=== PATIENT | male | born 1990 | race Caucasian/White ===

== ENCOUNTER 2024-05-20 09:41 | Emergency (ER) | payer SELFPAY ==
[2024-05-20 10:12] LABS: Absolute Eosinophils 0.1 K/uL (0-0.5); Absolute Lymphocytes (CBC) 1.8 K/uL (0.7-4.9); Absolute Monocytes 0.4 K/uL (0.1-1.3); Basophils % 0.6 % (0-1.3); Eosinophils % 1.3 % (0-4.4); Hematocrit 45.4 % (39.6-49.0); Hemoglobin 15.1 g/dL (13.6-17.9); Lymphocytes % 41.4 % (15.3-44.8); MCH 30.7 pg (27.0-35.0); MCHC 33.3 g/dL (32.0-36.0); MCV 92.2 fL (80-100); MPV 8.3 fL (7.6-11.3); Monocytes % 9.1 % (3.3-12.3); Neutrophils % 47.6 % (41.7-73.7); Platelets 151 thou/uL (152-406); RBC Red Blood Cell Count 4.92 M/uL (4.33-5.43); Red Cell Distribution Width 13.7 % (12.1-15.2)
[2024-05-20] MEDS ORDERED: NA CHLORIDE 0.9% 1,000 ML ONE (10:15)
--- NOTE | 2024-05-20 10:21 | RAD REPORT ---
EXAM: CT CHEST, ABDOMEN AND PELVIS WITHOUT CONTRAST CLINICAL INDICATION: Male, 34 years [facility] chest/abd pain Bed Name: 5 TECHNIQUE: CT chest, abdomen and pelvis was performed, with IV contrast, as per department protocol. Axial, sagittal and coronal reconstructions were obtained. One or more of the following dose reduction techniques were used: Automated exposure control, adjustment of the mA and/or kV according to the patient size, and/or iterative reconstruction. Unless otherwise specified, incidental findings do not require dedicated imaging follow-up. [id number]. COMPARISON: No prior exam. FINDINGS: Chest: LOWER NECK/CHEST WALL: Visualized thyroid gland and soft tissues are normal. LUNGS AND AIRWAYS: Airways are clear. No evidence of airspace or interstitial process. No nodules. PLEURA: No pleural effusion. No pneumothorax. Hemidiaphragms are normally positioned. MEDIASTINUM AND LYMPH NODES: No mediastinal mass or fluid collection. Normal size mediastinal, hilar, and axillary lymph nodes. THORACIC AORTA: Normal caliber and configuration. PULMONARY ARTERIES: Normal caliber. HEART: Unremarkable. Abdomen/Pelvis LIVER: 12 mm low-density lesion in the posterior right hepatic lobe which is likely benign. Hepatic s teatosis GALLBLADDER/BILE DUCTS: Cholecystectomy PANCREAS: No mass, ductal dilation, or argelia-pancreatic fluid. SPLEEN: Normal size. No focal lesion. ADRENALS: Normal; no mass. KIDNEYS AND URETERS: Normal size and contour. No hydronephrosis. GASTROINTESTINAL TRACT: Stomach is non-dilated. Small bowel has normal course and caliber. No colonic wall thickening or pericolonic inflammatory changes. Normal appendix. PERITONEUM: No free fluid. LYMPH NODES: No lymphadenopathy. ABDOMINAL AORTA AND OTHER VESSELS: Normal caliber aorta and IVC. URINARY BLADDER: Normal contour. REPRODUCTIVE ORGANS: No pathologic process. MUSCULOSKELETAL: No acute or suspicious osseous abnormality. ADDITIONAL FINDINGS: None IMPRESSION: No acute or significant abnormalities in the chest, abdomen, or pelvis.
[2024-05-20 10:34] LABS: Albumin 3.7 g/dL (3.4-5.0); Albumin/Globulin Ratio 1.1 (1.1-1.8); Bilirubin Total 0.6 mg/dL (0.2-1.0); Globulin 3.3 g/dL (2.3-3.5)
[2024-05-20 11:44] LABS: Specific Gravity 1.028 (1.005-1.030); Sqamous Epithelial None Seen /HPF (None Seen); Urine Bacteria None Seen /HPF (<20); Urine Bilirubin NEGATIVE (Negative); Urine Blood Negative (Negative); Urine Clarity Clear (Clear); Urine Color Colorless (Yellow); Urine Culture Reflex Order NOT NEEDED; Urine Glucose NEGATIVE (Negative); Urine Ketones NEGATIVE (Negative); Urine Microscopic Reflex YN ORDER UMIC; Urine Nitrite NEGATIVE (Negative); Urine Protein NEGATIVE (Negative); Urine RBC <5 /HPF (None Seen); Urine Urobilinogen Normal (Normal); Urine WBC <5 /HPF (<5)
--- NOTE | 2024-05-20 11:47 | EDPHYS ---
Physician Documentation [facility] Name: Estevan Lopez Age: 34 yrs Sex: Male : 1990 Arrival Date: 05/20/2024 Time: 09:41 Bed 5 Private MD: ED Physician Cristiano Montes De Oca HPI: 05/20 09:55 This 34 yrs old Male presents to ER via Ambulatory with complaints of Abdominal Pain. sp3 09:55 34-year-old male with history of low T, s/p cholecystectomy now presents to the ED with sp3 chief complaint 2 weeks of chest, abdomen and pelvic pain. Patient states that it is worse at night and it starts in the chest and moves inferiorly into his abdomen and left lower quadrant. Patient had a colonoscopy 2 years ago which demonstrated polyps and diverticulitis. Patient has had no symptoms or issues with it since then. He denies vomiting, diarrhea, bleeding, back pain, dysuria, urinary frequency, fever, known sick contacts, travel history, trauma or any other signs or symptoms on ROS at this time.. Historical: - Allergies: 09:50 No Known Allergies; ll1 - PMHx: 09:50 low T; ll1 - PSHx: 09:50 None; ll1 - Immunization history:: Adult Immunizations up to date. - Infectious Disease History:: Denies. - Social history:: Smoking status: Patient reports the use of cigarette tobacco products, smokes one-half pack cigarettes per day. ROS: 09:55 Constitutional: Negative for fever, chills, and weight loss, Eyes: Negative for injury, sp3 pain, redness, and discharge, Neck: Negative for injury, pain, and swelling, Respiratory: Negative for shortness of breath, cough, wheezing, and pleuritic chest pain, Back: Negative for injury and pain, : Negative for injury, bleeding, discharge, and swelling, MS/Extremity: Negative for injury and deformity, Skin: Negative for injury, rash, and discoloration, Neuro: Negative for headache, weakness, numbness, tingling, and seizure, Psych: Negative for depression, anxiety, suicide ideation, homicidal ideation, and hallucinations, Allergy/Immunology: Negative for hives, rash, and allergies, Endocrine: Negative for neck swelling, polydipsia, polyuria, polyphagia, and marked weight changes, Hematologic/Lymphatic: Negative for swollen nodes, abnormal bleeding, and unusual bruising, 09:56 All other systems are negative, sp3 Exam: 09:59 Constitutional: This is a well developed, well nourished patient who is awake, alert, sp3 and in no acute distress. Head/Face: Normocephalic, atraumatic. Eyes: Pupils equal round and reactive to light, extra-ocular motions intact. Lids and lashes normal. Conjunctiva and sclera are non-icteric and not injected. Cornea within normal limits. Periorbital areas with no swelling, redness, or edema. ENT: Nares patent. No nasal discharge, no septal abnormalities noted. External auditory canals are clear. Oropharynx with no redness, swelling, or masses, exudates, or evidence of obstruction, uvula midline. Mucous membranes moist. Neck: Trachea midline, no thyromegaly or masses palpated, and no cervical lymphadenopathy. Supple, full range of motion without nuchal rigidity, or vertebral point tenderness. No Meningismus. Chest/axilla: Normal chest wall appearance and motion. Nontender with no deformity. No lesions are appreciated. Cardiovascular: Regular rate and rhythm with a normal S1 and S2. No gallops, murmurs, or rubs. Normal PMI, no JVD. No pulse deficits. Respiratory: Lungs have equal breath sounds bilaterally, clear to auscultation and percussion. No rales, rhonchi or wheezes noted. No increased work of breathing, no retractions or nasal flaring. Back: No spinal tenderness. No costovertebral tenderness. Full range of motion. Skin: Warm, dry with normal turgor. Normal color with no rashes, no lesions, and no evidence of cellulitis. MS/ Extremity: Pulses equal, no cyanosis. Neurovascular intact. Full, normal range of motion. Neuro: Awake and alert, GCS 15, oriented to person, place, time, and situation. Cranial nerves II-XII grossly intact. Motor strength 5/5 in all extremities. Sensory grossly intact. Cerebellar exam normal. Normal gait. Psych: Awake, alert, with orientation to person, place and time. Behavior, mood, and affect are within normal limits. 09:59 Abdomen/GI: Mild diffuse pain to palpation without peritoneal signs, rebound or guarding., Vital Signs: 09:51 BP 159 / 107; Pulse 77; Resp 17; Temp 98; Pulse Ox 100% on R/A; Weight 79.38 kg; Height ll1 6 ft. 0 in. ; Pain 8/10; 10:31 BP 152 / 99; Pulse 57; Resp 18; Pulse Ox 97% on R/A; ph 11:58 BP 123 / 89; Pulse 58; Resp 18; Temp 97.5; Pulse Ox 98% on R/A; ph 09:51 Body Mass Index 23.73 (79.38 kg, 182.88 cm) ll1 09:51 Pain Scale: Adult ll1 MDM: 09:46 Medical Screening Exam initiated sp3 09:59 Data reviewed: vital signs, nurses notes, lab test result(s), radiologic studies. ED sp3 course: 34-year-old male with PMH above now with chest and abdominal pain. Differential diagnosis includes foodborne illness, colitis, other intra-abdominal pathology, functional abdominal pain, among others. I am out of suspicious for acute coronary syndrome, vascular pathology, intrathoracic pathology, or any other critical process. Also consider UTI/pyelonephritis spectrum and kidney stone. Workup will include CT scan of the chest abdomen pelvis, labs and UA with general precautions and supportive care.. 11:44 ED course: Full workup negative including all labs, urine and CT scan. Will discharge sp3 patient home with reassurance and follow-up with his PCP as needed.. 11 09:54 Order name: CBC with Diff; Complete Time: 10:22 sp3 05/20 09:54 Order name: CMP; Complete Time: 11:33 sp3 05/20 09:54 Order name: Lipase; Complete Time: 11:33 sp3 05/20 09:54 Order name: Urinalysis w/ reflexes; Complete Time: 11:44 sp3 05/20 09:54 Order name: CT Chest, Abdomen, Pelvis - W/Contrast; Complete Time: 10:22 sp3 05/20 09:54 Order name: IV Saline Lock; Complete Time: 10:03 sp3 05/20 09:54 Order name: Labs collected and sent; Complete Time: 10:03 sp3 Administered Medications: 10:31 Drug: NS 0.9% IV 1000 ml IV at 1 bolus Per protocol; to be given as a bolus over 60 ph minutes Route: IV; Rate: 1 bolus; Site: right antecubital; 11:58 Follow up: Response: No adverse reaction; IV Status: Completed infusion; IV Intake: ph 1000ml Disposition Summary: 05/20/24 11:46 Discharge Ordered Notes: Location: Home sp3 Condition: Stable sp3 Diagnosis - Abdominal pain, chest pain sp3 Followup: sp3 - With: Private Physician - When: Upon discharge from the Emergency Department - Reason: Continuance of care Discharge Instructions: - Discharge Summary Sheet sp3 - Abdominal Pain, Adult sp3 Forms: - Medication Reconciliation Form sp3 - Antibiotic Education sp3 - Prescription Opioid Use sp3 - Patient Portal Instructions sp3 - Leadership Thank You Letter sp3 Signatures: Dispatcher [employer] Madai Rasmussen RN RN ph Lewis, Lynsay, RN RN [facility] Cristiano Montes De Oca MD MD sp3
--- NOTE | 2024-05-20 11:47 | ER ---
Nurse's Notes [facility] Name: Estevan Lopez Age: 34 yrs Sex: Male : 1990 Arrival Date: 05/20/2024 Time: 09:41 Bed 5 Private MD: Diagnosis: Abdominal pain, chest pain Presentation: 05/20 09:51 Chief complaint: Patient states: CP, abdominal pain, and B groin pains off/on for 3 ll1 weeks. Coronavirus screen: Client denies travel out of the [place] in the last 14 days. At this time, the client does not indicate any symptoms associated with coronavirus-19. Ebola Screen: Patient denies travel to an Ebola-affected area in the 21 days before illness onset. Initial Sepsis Screen: Does the patient meet any 2 criteria? No. Patient's initial sepsis screen is negative. Does the patient have a suspected source of infection? No. Patient's initial sepsis screen is negative. Risk Assessment: Do you want to hurt yourself or someone else? Patient reports no desire to harm self or others. Onset of symptoms was April 28, 2024. 09:51 Method Of Arrival: Ambulatory ll1 09:51 Acuity: MU 3 ll1 Triage Assessment: 09:52 General: Appears uncomfortable, Behavior is calm, cooperative, appropriate for age. ll1 Pain: Complains of pain in abdomen and pelvis Pain currently is 8 out of 10 on a pain scale. Cardiovascular: Reports chest pain. GI: Reports lower abdominal pain, upper abdominal pain. Historical: - Allergies: 09:50 No Known Allergies; ll1 - PMHx: 09:50 low T; ll1 - PSHx: 09:50 None; ll1 - Immunization history:: Adult Immunizations up to date. - Infectious Disease History:: Denies. - Social history:: Smoking status: Patient reports the use of cigarette tobacco products, smokes one-half pack cigarettes per day. Screenin:55 [facility] ED Fall Risk Assessment (Adult) History of falling in the last 3 months, ph including since admission No falls in past 3 months (0 pts) Confusion or Disorientation No (0 pts) Intoxicated or Sedated No (0 pts) Impaired Gait No (0 pts) Mobility Assist Device Used No (0 pt) Altered Elimination No (0 pt) Score/Fall Risk Level 0 - 2 = Low Risk Oriented to surroundings, Maintained a safe environment, Hourly rounding (assess needs \T\ fall precautionary measures) done. Abuse screen: Denies threats or abuse. Denies injuries from another. Nutritional screening: No deficits noted. Tuberculosis screening: No symptoms or risk factors identified. Assessment: 10:29 General: Appears in no apparent distress. Behavior is calm, cooperative, appropriate ph for age, Denies fever, feeling ill. Pain: Complains of pain in pelvis and abdomen. Neuro: Level of Consciousness is awake, alert, obeys commands, Oriented to person, place, time, situation. Cardiovascular: Capillary refill < 3 seconds in bilateral fingers Patient's skin is warm and dry. Respiratory: Airway is patent Respiratory effort is even, unlabored, Respiratory pattern is regular, symmetrical. GI: Abdomen is round non-distended, Reports lower abdominal pain, constipation, Patient currently denies nausea, vomiting. : Reports pain in bilateral in suprapubic area. Derm: Skin is pink, warm \T\ dry. Vital Signs: 09:51 BP 159 / 107; Pulse 77; Resp 17; Temp 98; Pulse Ox 100% on R/A; Weight 79.38 kg; Height ll1 6 ft. 0 in. ; Pain 8/10; 10:31 BP 152 / 99; Pulse 57; Resp 18; Pulse Ox 97% on R/A; ph 11:58 BP 123 / 89; Pulse 58; Resp 18; Temp 97.5; Pulse Ox 98% on R/A; ph 09:51 Body Mass Index 23.73 (79.38 kg, 182.88 cm) ll1 09:51 Pain Scale: Adult ll1 ED Course: 09:44 Patient arrived in ED. mr 09:45 Cristiano Montes De Oca MD is Attending Physician. sp3 09:45 Arm band placed on Patient placed in an exam room, on a stretcher. ll1 09:47 Madai Tolentino RN is Primary Nurse. ph 09:52 Triage completed. ll1 09:55 Patient has correct armband on for positive identification. Bed in low position. Call light in reach. Side rails up X 1. Pulse ox on. NIBP on. 10:02 Initial lab(s) drawn, by me, sent to lab. Inserted saline lock: 22 gauge in right ph antecubital area, using aseptic technique. Blood collected. Flushed with 10 mL NS. 10:03 CBC with Diff Sent. ph 10:03 CMP Sent. ph 10:03 Lipase Sent. ph 10:11 CT Chest, Abdomen, Pelvis - W/Contrast In Process Unspecified. EDMS 11:58 No provider procedures requiring assistance completed. IV discontinued, intact, ph bleeding controlled, No redness/swelling at site. Pressure dressing applied. Administered Medications: 10:31 Drug: NS 0.9% IV 1000 ml IV at 1 bolus Per protocol; to be given as a bolus over 60 ph minutes Route: IV; Rate: 1 bolus; Site: right antecubital; 11:58 Follow up: Response: No adverse reaction; IV Status: Completed infusion; IV Intake: ph 1000ml Medication: 09:55 VIS not applicable for this client. ph Intake: 11:58 IV: 1000ml; Total: 1000ml. ph Outcome: 11:46 Discharge ordered by sp3 11:58 Discharged to home ambulatory, ph 11:58 Condition: good 11:58 Discharge instructions given to patient, Instructed on discharge instructions, follow up and referral plans. Demonstrated understanding of instructions, follow-up care, 11:59 Patient left the ED. ph Signatures: Dispatcher [employer] EDCO Rachel Sher, Stuart Reg mr Madai Tolentino, RN Judith Hernandez ph, RN RN ll1 Cristiano Montes De Oca MD MD sp3
[2024-05-20 12:05] VITALS: BP 123/89; TEMP 97.5; O2SAT 98
== END 2024-05-20 11:59 | disposition home or self-care (01) ==
LOC: ER 09:41
DX: R10.9 Unspecified abdominal pain (principal); R07.9 Chest pain, unspecified
CPT/HCPCS: 36415; 71260; 74177; 80053; 81001; 83690; 85025; J7030; Q9967

== ENCOUNTER 2024-11-09 14:39 | Emergency (ER) | payer OTHER ==
--- OUTSIDE RECORDS SUMMARY | 2024-11-09 14:43 | XMS REPORT | Continuity of Care Document ---
Author Name Unknown Address [address] [place] [address] [place] [id number] [facility] Address [address] [place] [address]. [address] [place] [address] Care Team Providers Care Converter Skimmer Name Role Phone Jasmina Suero Attending Clinician Unavailable Encounters Start Date/Time End Date/Time Encounter Type Admission Type Attending Clinicians Care Facility Care Department Encounter ID Source 2024-09-15 08:37:01 Outpatient Jasmina Suero [facility] [id number] [facility]
[2024-11-09 15:37] LABS: Absolute Eosinophils 0.1 K/uL (0-0.5); Absolute Lymphocytes (CBC) 1.3 K/uL (0.7-4.9); Absolute Monocytes 0.3 K/uL (0.1-1.3); Absolute Neutrophil 2.3 K/uL (1.8-8.0); Basophils % 0.7 % (0-1.3); Eosinophils % 1.3 % (0-4.4); Hematocrit 41.6 % (39.6-49.0); Hemoglobin 14.5 g/dL (13.6-17.9); Lymphocytes % 32.1 % (15.3-44.8); MCH 30.7 pg (27.0-35.0); MCHC 34.7 g/dL (32.0-36.0); MCV 88.3 fL (80-100); MPV 8.5 fL (7.6-11.3); Monocytes % 8.1 % (3.3-12.3); Neutrophils % 57.8 % (41.7-73.7); Nucleated Red Blood Cells % 0.3 % (0-0); Platelets 155 thou/uL (152-406); RBC Red Blood Cell Count 4.72 M/uL (4.33-5.43); Red Cell Distribution Width 13.3 % (12.1-15.2)
[2024-11-09 15:45] LABS: PT Prothrombin Time 11.8 SECONDS (10-13.0); Protime INR 1.04
[2024-11-09 15:56] LABS: Anion Gap 6.9 mEq/L (5.0-15.0); Potassium 3.9 mEq/L (3.5-5.1); Troponin High Sensitivity 4.7 pg/mL (<58.9)
--- NOTE | 2024-11-09 17:37 | RAD REPORT ---
EXAM: CT Head Brain Wo Cont HISTORY: CONFUSED COMPARISON: None TECHNIQUE: Multiple contiguous axial images were obtained for a CT of the brain without contrast. Sag ittal and coronal reformats were performed. One or more of the following dose reduction techniques were used: Automated exposure control, adjus tment of the mA and kV according to patient size, and iterative reconstruction. Unless otherwise specified, incidental findings do not require dedicated imaging follow-up. FINDINGS: No evidence of hydrocephalus, intracranial hemorrhage, or extra-axial fluid collection. The brain is normal in morphology. The calvarium is intact. The visualized paranasal sinuses and mastoid air cells are essentially clear . IMPRESSION: No evidence of acute intracranial abnormality.
--- NOTE | 2024-11-09 17:47 | ER ---
Nurse's Notes [facility] Name: Estevan Lopez Age: 34 yrs Sex: Male : 1990 Arrival Date: 11/09/2024 Time: 14:39 Bed 25 Private MD: Diagnosis: Essential (primary) hypertension;Confusion Presentation: 11/09 14:56 Chief complaint: Patient states: High blood pressure X 1 week. Pt reports feeling ld1 fatigue, disoriented. Neck/shoulder pain. Coronavirus screen: At this time, the client does not indicate any symptoms associated with coronavirus-19. Ebola Screen: No symptoms or risks identified at this time. Initial Sepsis Screen: Does the patient meet any 2 criteria? No. Patient's initial sepsis screen is negative. Does the patient have a suspected source of infection? No. Patient's initial sepsis screen is negative. Risk Assessment: Do you want to hurt yourself or someone else? Patient reports no desire to harm self or others. Onset of symptoms was November 09, 2024 at 14:58. 14:56 Method Of Arrival: Ambulatory ld1 14:56 Acuity: MU 2 ld1 Triage Assessment: 14:56 General: Appears in no apparent distress. uncomfortable, Behavior is calm, cooperative, ld1 appropriate for age. Pain: Complains of pain in face Pain does not radiate. Pain currently is 7 out of 10 on a pain scale. Quality of pain is described as throbbing, Pain began suddenly, Is continuous. EENT: No signs and/or symptoms were reported regarding the EENT system. Neuro: Level of Consciousness is awake, alert, obeys commands, Oriented to person, place, time, situation. Cardiovascular: Capillary refill < 3 seconds Patient's skin is warm and dry. Respiratory: Airway is patent Respiratory effort is even, unlabored. GI: Abdomen is round non-distended. : No signs and/or symptoms were reported regarding the genitourinary system. Derm: No signs and/or symptoms reported regarding the dermatologic system. Musculoskeletal: No signs and/or symptoms reported regarding the musculoskeletal system. Historical: - Allergies: 14:55 No Known Allergies; ld1 - Home Meds: 14:55 gabapentin 300 mg oral capsule 1 cap daily [Active]; ld1 - PMHx: 14:55 Low T; Rickets; ld1 - Immunization history:: Adult Immunizations up to date. - Infectious Disease History:: Denies. - Social history:: Smoking status: Patient denies any tobacco usage or history of. Screenin:34 [facility] ED Fall Risk Assessment (Adult) History of falling in the last 3 months, cm10 including since admission No falls in past 3 months (0 pts) Confusion or Disorientation No (0 pts) Intoxicated or Sedated No (0 pts) Impaired Gait No (0 pts) Mobility Assist Device Used No (0 pt) Altered Elimination No (0 pt) Score/Fall Risk Level 0 - 2 = Low Risk Oriented to surroundings, Maintained a safe environment, Hourly rounding (assess needs \T\ fall precautionary measures) done. Abuse screen: Denies threats or abuse. Denies injuries from another. Nutritional screening: No deficits noted. Tuberculosis screening: No symptoms or risk factors identified. Assessment: 15:28 General: Appears in no apparent distress. comfortable, Behavior is calm, cooperative. cm10 Pain: Complains of pain in neck Pain currently is 7 out of 10 on a pain scale. Neuro: No deficits noted. Level of Consciousness is awake, alert, obeys commands, Oriented to person, place, time, situation, Appropriate for age. Neuro: Reports dizziness. Respiratory: No deficits noted. Airway is patent Respiratory effort is even, unlabored, Respiratory pattern is regular, symmetrical. Musculoskeletal: No deficits noted. Range of motion: intact in all extremities. 17:25 Reassessment: Patient appears in no apparent distress at this time. Patient and/or cm10 family updated on plan of care and expected duration. Pain level reassessed. Patient is alert, oriented x 3, equal unlabored respirations, skin warm/dry/pink. Vital Signs: 14:56 BP 167 / 110; Pulse 110; Resp 18; Temp 97.4(TE); Pulse Ox 98% on R/A; Weight 77.11 kg; ld1 Height 5 ft. 11 in. ; Pain 7/10; 15:28 BP 121 / 85; Pulse 86; cm10 15:30 BP 129 / 88; Pulse 92; Resp 14; Pulse Ox 96% on R/A; cm10 16:27 BP 134 / 87; Pulse 81; Resp 15; Pulse Ox 99% ; cm10 17:00 BP 126 / 88; Pulse 80; Resp 16; Pulse Ox 98% on R/A; cm10 17:20 BP 138 / 91; Pulse 80; Resp 15; Pulse Ox 98% ; cm10 17:56 BP 146 / 89; Pulse 77; Resp 17; Pulse Ox 100% ; cm10 14:56 Body Mass Index 23.71 (77.11 kg, 180.34 cm) ld1 14:56 Pain Scale: Adult ld1 Vitals: 15:35 Cardiac Rhythm Assessment Regular Sinus rhythm. cm10 NIH Stroke Scale Scores: 15:01 NIHSS Score: 0 ld1 ED Course: 14:40 Patient arrived in ED. gl 14:41 Dania Porras FNP-C is PHCP. kb 14:41 Sj Figueroa MD is Attending Physician. kb 14:55 Checo Samaniego DO is Attending Physician. kb 14:56 Arm band placed on right wrist. ld1 14:58 Triage completed. ld1 15:13 Jordana Hines, RN is Primary Nurse. cm10 15:34 Patient has correct armband on for positive identification. Placed in gown. Bed in low cm10 position. Call light in reach. Side rails up X 1. Client placed on continuous cardiac and pulse oximetry monitoring. NIBP monitoring applied. solar installation supervisor on. 15:34 Basic Metabolic Panel Sent. cm10 15:34 CBC with Diff Sent. cm10 15:34 High Sensitivity Troponin Sent. cm10 15:34 Protime (+inr) Sent. cm10 15:34 Ptt, Activated Sent. cm10 15:34 Initial lab(s) drawn, by nh, sent to lab. EKG done, by ED staff, reviewed by Checo Samaniego DO. Inserted saline lock: 18 gauge in left forearm, using aseptic technique. Blood collected. Flushed with 10 mL NS. 15:37 CT Head Brain wo Cont In Process Unspecified. EDMS 16:28 CXR XRAY In Process Unspecified. EDMS 17:56 No provider procedures requiring assistance completed. IV discontinued, intact, cm10 bleeding controlled, No redness/swelling at site. Pressure dressing applied. 17:57 Provided Education on: Follow-up instructions. cm10 Administered Medications: No medications were administered Medication: 15:34 VIS not applicable for this client. cm10 Outcome: 17:47 Discharge ordered by . ms3 17:56 Discharged to home ambulatory, with family, cm10 17:56 Condition: good 17:56 Discharge instructions given to patient, Instructed on discharge instructions, follow up and referral plans. Demonstrated understanding of instructions, follow-up care, 17:57 Patient left the ED. cm10 NIH Stroke Scale - NIH Stroke Score Date: 11/09/2024 Time: 15:01 Total Score = 0 10. Dysarthria (speech clarity - read or repeat words) - 0(Normal) 11. Extinction and Inattention (visual/tactile/auditory/spatial/personal) - 0(No abnormality) 1a. Level of Consciousness (LOC) - 0(Alert) 1b. Level of Consciousness (LOC) (Month \T\ Age) - 0(Both) 1c. LOC Commands (Open \T\ Closes Eyes/Wharf Helper) - 0(Both) 2. Best Gaze (Lateral Gaze Paresis) - 0(Normal) 3. Visual Field Loss - 0(No visual loss) 4. Facial Palsy - 0(Normal) 5a. Left Arm: Motor (10-second hold) - 0(No drift) 5b. Right Arm: Motor (10-second hold) - 0(No drift) 6a. Left Leg: Motor (5-second hold - always test supine) - 0(No drift) 6b. Right Leg: Motor (5-second hold - always test supine) - 0(No drift) 7. Limb Ataxia (finger/nose \T\ heel/duke - test with eyes open) - 0(Absent) 8. Sensory Loss (pinprick arms/legs/face) - 0(Normal) 9. Best Language: Aphasia (description/naming/reading) - 0(No aphasia) Initials: ld1 Signatures: Dispatcher [employer] EDMS Dania Porras, CLOSING COORDINATOR-C CLOSING COORDINATOR-Ckb Checo Samaniego, DO ms3 Aubree Samaniego RN RN ld1 Jordana Hines RN RN cm10 Bella Almonte, Reg Reg gl Corrections: (The following items were deleted from the chart) 15:00 14:56 Acuity: MU 3 ld1 ld1 15:35 15:30 BP 129 / 88; Pulse 92bpm; Resp 11bpm; Pulse Ox 96% RA; cm10 cm10
--- NOTE | 2024-11-09 17:47 | EDPHYS ---
Physician Documentation [facility] Name: Estevan Lopez Age: 34 yrs Sex: Male : 1990 Arrival Date: 11/09/2024 Time: 14:39 Bed 25 Private MD: ED Physician Checo Samaniego HPI: 11/09 15:33 This 34 yrs old Male presents to ER via Ambulatory with complaints of High Blood mn3 Pressure, Dizziness. 15:33 34-year-old male with past medical history of low testosterone, rickets [place] [facility] [place] for 1 week of intermittent elevated blood pressures and episodes of disorientation. Patient also notes fatigue, neck pain, shoulder pain. He states his discomfort is 7/10. Patient notes he has had a headache for 2 days and nausea for 1 week. Patient denies vomiting.. Historical: - Allergies: 14:55 No Known Allergies; ld1 - Home Meds: 14:55 gabapentin 300 mg oral capsule 1 cap daily [Active]; ld1 - PMHx: 14:55 Low T; Rickets; ld1 - Immunization history:: Adult Immunizations up to date. - Infectious Disease History:: Denies. - Social history:: Smoking status: Patient denies any tobacco usage or history of. ROS: 15:33 Constitutional: Negative for fever, and chills. Cardiovascular: Negative for chest ms3 pain, and palpitations. Respiratory: Negative for shortness of breath, cough, wheezing, and pleuritic chest pain, Abdomen/GI: Negative for abdominal pain, nausea, vomiting, diarrhea, and constipation, MS/Extremity: Negative for injury and deformity, Skin: Negative for injury, rash, and discoloration, 15:33 Neuro: Positive for headache, Exam: 15:33 Constitutional: This is a well developed, well nourished patient who is awake, alert, ms3 and in no acute distress. Cardiovascular: Regular rate and rhythm with a normal S1 and S2. No gallops, murmurs, or rubs. Normal PMI, no JVD. No pulse deficits. Respiratory: Lungs have equal breath sounds bilaterally, clear to auscultation and percussion. No rales, rhonchi or wheezes noted. No increased work of breathing, no retractions or nasal flaring. Abdomen/GI: Soft, non-tender, with normal bowel sounds. No distension or tympany. No guarding or rebound. No evidence of tenderness throughout. Skin: Warm, dry with normal turgor. Normal color with no rashes, no lesions, and no evidence of cellulitis. MS/ Extremity: Pulses equal, no cyanosis. Neurovascular intact. Full, normal range of motion. 15:33 Neuro: Orientation: is normal, to person, place, time \T\ situation. Mentation: is normal, Memory: is normal, Cranial nerves: CN I not tested, CN II- XII are normal as tested, Cerebellar function: normal finger to nose testing, Motor: is normal, Sensation: is normal, no obvious gross deficits, Gait: is steady, at a normal pace, Abnormal movements: there are no abnormal movements, 15:33 ECG was reviewed by the Attending Physician. ms3 Vital Signs: 14:56 BP 167 / 110; Pulse 110; Resp 18; Temp 97.4(TE); Pulse Ox 98% on R/A; Weight 77.11 kg; ld1 Height 5 ft. 11 in. ; Pain 7/10; 15:28 BP 121 / 85; Pulse 86; cm10 15:30 BP 129 / 88; Pulse 92; Resp 14; Pulse Ox 96% on R/A; cm10 16:27 BP 134 / 87; Pulse 81; Resp 15; Pulse Ox 99% ; cm10 17:00 BP 126 / 88; Pulse 80; Resp 16; Pulse Ox 98% on R/A; cm10 17:20 BP 138 / 91; Pulse 80; Resp 15; Pulse Ox 98% ; cm10 17:56 BP 146 / 89; Pulse 77; Resp 17; Pulse Ox 100% ; cm10 14:56 Body Mass Index 23.71 (77.11 kg, 180.34 cm) ld1 14:56 Pain Scale: Adult ld1 NIH Stroke Scale Scores: 15:01 NIHSS Score: 0 ld1 MDM: 14:41 Medical Screening Exam initiated kb 17:47 Differential diagnosis: hypertensive crisis, Malignant HTN, CVA, intracerebral ms3 hemorrhage. Data reviewed: vital signs, nurses notes, lab test result(s), EKG, radiologic studies, and as a result, I will discharge patient. Counseling: I had a detailed discussion with the patient and/or guardian regarding the historical points, exam findings, and any diagnostic results supporting the discharge/admit diagnosis, lab results, radiology results, the need for outpatient follow up, to return to the emergency department if symptoms worsen or persist or if there are any questions or concerns that arise at home. Special discussion: I discussed with the patient/guardian in detail that at this point there is no indication for admission to the hospital. It is understood, however, that if the symptoms persist or worsen the patient needs to return immediately for re-evaluation. ED course: Discussed labs, CT head with patient. Patient to follow-up with his primary care physician in 2 to 3 days. Patient understands and agrees with plan. All questions were answered. Return precautions discussed include worsening symptoms, or any other concerns. On reevaluation patient is alert and orient x 4, no apparent distress, nontoxic-appearing, speaking full sentences.. 17:49 Independent interpretation of the following test(s) in the Emergency Department X-Ray: ms3 My interpretation is Chest x-ray image reviewed by me does not reveal pneumonia, pneumothorax. 11/09 15:05 Order name: Basic Metabolic Panel; Complete Time: 16:08 ms3 11/09 15:05 Order name: CBC with Diff; Complete Time: 16:08 ms3 11/09 15:05 Order name: High Sensitivity Troponin; Complete Time: 16:08 ms3 11/09 15:05 Order name: Protime (+inr); Complete Time: 16:08 ms3 11/09 15:05 Order name: Ptt, Activated; Complete Time: 16:08 ms11/09 15:05 Order name: CT Head Brain wo Cont; Complete Time: 17:41 ms3 11/09 15:05 Order name: CXR XRAY 3 11/09 15:05 Order name: EKG; Complete Time: 15:05 ms3 11/09 15:05 Order name: Accucheck; Complete Time: 17:12 ms3 11/09 15:05 Order name: Cardiac monitoring; Complete Time: 15:33 ms3 11/09 15:05 Order name: EKG - Nurse/Tech; Complete Time: 15:33 ms3 11/09 15:05 Order name: IV Saline Lock; Complete Time: 15:33 ms3 11/09 15:05 Order name: Labs collected and sent; Complete Time: 15:33 ms3 11/09 15:05 Order name: NPO; Complete Time: 17:12 ms3 11/09 15:05 Order name: O2 Per Protocol; Complete Time: 15:33 ms3 11/09 15:05 Order name: O2 Sat Monitoring; Complete Time: 15:33 ms3 11/09 15:05 Order name: Stroke Swallow Screen; Complete Time: 17:12 ms3 EC:33 Rate is 88 beats/min. Rhythm is regular. Left axis deviation noted. AR interval is ms3 normal. QRS interval is normal. Clinical impression: NSR w/ Non-specific ST/T Changes and RBBB. Interpreted by me. Reviewed by me. Administered Medications: No medications were administered Disposition Summary: 11/09/24 17:47 Discharge Ordered Notes: Location: Home ms3 Condition: Stable ms3 Diagnosis - Essential (primary) hypertension ms3 - Confusion ms3 Followup: ms3 - With: Private Physician - When: 2 - 3 days - Reason: Recheck today's complaints Discharge Instructions: - Discharge Summary Sheet ms3 - Confusion ms3 - Hypertension, Adult ms3 - DASH Eating Plan ms3 Forms: - Medication Reconciliation Form ms3 - Antibiotic Education ms3 - Prescription Opioid Use ms3 - Patient Portal Instructions ms3 - Leadership Thank You Letter ms3 NIH Stroke Scale - NIH Stroke Score Date: 11/09/2024 Time: 15:01 Total Score = 0 10. Dysarthria (speech clarity - read or repeat words) - 0(Normal) 11. Extinction and Inattention (visual/tactile/auditory/spatial/personal) - 0(No abnormality) 1a. Level of Consciousness (LOC) - 0(Alert) 1b. Level of Consciousness (LOC) (Month \T\ Age) - 0(Both) 1c. LOC Commands (Open \T\ Closes Eyes/Trash Collector Truck Driver) - 0(Both) 2. Best Gaze (Lateral Gaze Paresis) - 0(Normal) 3. Visual Field Loss - 0(No visual loss) 4. Facial Palsy - 0(Normal) 5a. Left Arm: Motor (10-second hold) - 0(No drift) 5b. Right Arm: Motor (10-second hold) - 0(No drift) 6a. Left Leg: Motor (5-second hold - always test supine) - 0(No drift) 6b. Right Leg: Motor (5-second hold - always test supine) - 0(No drift) 7. Limb Ataxia (finger/nose \T\ heel/duke - test with eyes open) - 0(Absent) 8. Sensory Loss (pinprick arms/legs/face) - 0(Normal) 9. Best Language: Aphasia (description/naming/reading) - 0(No aphasia) Initials: ld1 Signatures: Dispatcher [employer] EDDania Zapata, [employer]IVER-Checo Gibbons, DO ms3 Aubree Samaniego RN RN ld1
--- NOTE | 2024-11-09 18:24 | RAD REPORT ---
EXAMINATION: ONE VIEW CHEST XR CLINICAL INDICATION: Male, 34 years old.,confusion, htn TECHNIQUE: Frontal chest projection is submitted. Examination is limited by patient positioning and t echnique. COMPARISON: No prior exam. FINDINGS: The lungs are well inflated and clear. No pneumothorax or sizable effusion. The heart is normal in s ize. Mediastinal contours are unremarkable. IMPRESSION: No acute intrathoracic abnormalities.
--- NOTE | 2024-11-10 11:46 | EKG ---
Test Date: 2024-11-09 Test Time: 15:23:10 Science Professor: DIANA MEASUREMENT RESULTS: Intervals: Rate: 88 MD: 166 QRSD: 120 QT: 354 QTc: 428 [place]: P: 65 MD: 166 QRS: -30 T: 34 INTERPRETIVE STATEMENTS: Normal sinus rhythm Left axis deviation Right bundle branch block Abnormal ECG No previous ECG available for comparison Electronically Signed On 11-10-24 11:45:42 CDT by Indra Spencer
[2024-11-10 19:26] VITALS: TEMP 97.4
[2024-11-10 19:35] VITALS: BP 146/89; O2SAT 100
== END 2024-11-09 17:57 | disposition home or self-care (01) ==
LOC: ER 14:39
DX: I10 Essential (primary) hypertension (principal); R41.0 Disorientation, unspecified; R53.83 Other fatigue; M54.2 Cervicalgia
CPT/HCPCS: 36415; 70450; 71045; 80048; 84484; 85025; 85610; 85730; 93005; 99285